=== PATIENT | female | born 1960 | race Caucasian/White ===

== ENCOUNTER 2018-06-05 14:33 | Observation (INO) | payer BC, SELFPAY ==
[2018-06-05 14:52] VITALS: BP 125/73; PULSE 108; RESP 18; TEMP 39.5; O2SAT 98; BMI 22.4
--- NOTE | 2018-06-05 16:57 | US_ITS ---
STUDY: RENAL ULTRASOUND - COMPLETE REASON FOR EXAM: Female, 57 years old. Hematuria microscopic TECHNIQUE: Ultrasound evaluation of the kidneys was performed with real-time and static rodgers-scale imaging. COMPARISON: None. FINDINGS: RIGHT KIDNEY: Normal location of the right kidney, which is normal in size. The right kidney measures 10.7 x 5 x 5 cm. There is a normal cortex of the right kidney. The renal cortex measures 1.6 cm. There is a 0.5 x 0.6 x 0.4 cm mid right renal cortical cyst. There are no right renal calculi. There is no right hydronephrosis. DISTAL RIGHT URETER: There is non-visualization of the distal right ureter. There is no demonstrated right ureterovesical junction calculus. There is no demonstrated right ureteral jet. LEFT KIDNEY: Normal location of the left kidney, which is normal in size. The left kidney measures 11 x 64.7 x 5.3 cm. There is a normal cortex of the left kidney. The renal cortex measures 1.8 cm. There is no left renal mass or cyst. There are no left renal calculi. There is no left hydronephrosis. DISTAL LEFT URETER: There is non-visualization of the distal left ureter. There is no demonstrated left ureterovesical junction calculus. There is no demonstrated left ureteral jet. BLADDER: The distended urinary bladder has a volume of 187 ml. There is a normal wall thickness of the distended urinary bladder. There is no demonstrated mass within the urinary bladder. There are no demonstrated bladder calculi. US/Kidney and Bladder IMPRESSION: There is no obstructive uropathy or obstructive renal calculi. Tiny right renal cyst. The ureteral jets are not visualized. Electronically Signed: Maritza Wilburn MD at 3:49 EDT , Service support ,
--- NOTE | 2018-06-05 17:00 | PCM.HP.BLA ---
History and Physical Date of Admission: 06/05/18 49 yo female presents for ER f/u. She reports ongoing fever up to 104 despite taking tylenol around the clock. In significant pain bilat flanks. Went to [facility] on 06/01/18, CT neg for stone/hydro. Urine cx grew E coli, resistant to cipro and sulfa. She took cephalexin x 2 but fever increased so she stopped it. Having a difficult time drinking and eating. Nausea no vomiting. ALLERGIES: Cipro Sulfa MEDICATIONS: Keflex Cyclobenzaprine Hcl Etodolac Hydrocodone-Acetaminophen 10 mg-325 mg tablet 1 tablet PO Daily PRN Promethazine Hcl 25 mg tablet 1 tablet PO Daily Tylenol PSH: Cysto Uretero Remove Stone - 2011 NON- PSH: D&&C - about 2007 PMH: Calculus of kidney - 2011, - 2011 Unspecified abdominal pain - 2011 Unspecified renal colic - 2011 Calculus of kidney with calculus of ureter Calculus of ureter Hematuria, unspecified Personal history of urinary calculi Urinary calculus, unspecified NON- PMH: Anxiety disorder due to known physiological condition Bronchitis, not specified as acute or chronic Secondary osteoarthritis, unspecified site FAMILY HISTORY: Breast Cancer - Runs in Family DVT - Father High Blood Pressure - Runs in Family Urinary Tract Infections - Mother SOCIAL HISTORY: Marital Status: Single Preferred Language: Georgian; Ethnicity: Not Or ; Race: White Current Smoking Status: Patient has never smoked. Does not use smokeless tobacco. Has never drank. Does not use drugs. Has not had a blood transfusion. REVIEW OF SYSTEMS: Constitutional: Patient reports fever and chills. Patient denies weight loss and weight gain. Eyes: Patient denies blurry vision, cataracts, and vision problems. Ears, Nose, Mouth, Throat: Patient denies hearing loss, sinus infections, nasal stuffiness, and sleep apnea. Cardiovascular: Patient denies chest pains, swollen ankles, irregular heartbeat, and pacemaker/defibrillator. Respiratory: Patient denies shortness of breath, wheezing, use oxygen, cpap at night., and copd. Gastrointestinal: Patient denies abdominal pain, nausea/vomiting, and change in bowels. Genitourinary: Patient reports frequent urination, blood in urine, get up at night to void, and history of stones. Patient denies bedwetting, weak stream, difficulty starting stream, frequent urinary tract infections, urinary retention, and leakage of urine. Musculoskeletal: Patient reports sore muscles and back pain. Patient denies gout and arthritis. Integumentary/Skin: Patient denies rash, persistent itching, and skin cancer history. Neurological: Patient denies numbness, dizziness, stroke/tia, and history of falling/unsteadiness.. Hematologic/Lymphatic: Patient denies swollen glands, abnormal bleeding, transfusion history, and blood clots/dvt/pulmonary embolism. VITAL SIGNS: 06/05/2018 01:25 PM Weight 128 lb / 58.06 kg Height 64 in / 162.56 cm BP 130/60 mmHg Temperature 102.3 F / 39.0 C BMI 22.0 kg/m? PHYSICAL EXAMINATION: Bladder: Normal to palpation, no tenderness, no mass, normal size. MULTI-SYSTEM PHYSICAL EXAMINATION: Constitutional: appears ill Respiratory: No labored breathing, no use of accessory muscles. Normal breath sounds. Neurologic / Psychiatric: Oriented to time, oriented to place, oriented to person. No depression, no anxiety, no agitation. Gastrointestinal: Abdominal tenderness bilat upper, and significant bilat CVA tenderness. No mass, no rigidity, non obese abdomen. Eyes: Normal conjunctivae. Normal eyelids. Musculoskeletal: Normal gait PAST DATA REVIEWED: Source Of History: Patient Records Review: Previous Hospital Records Urine Test Review: Urinalysis, Urine Culture and Sensitivity X-Ray Review: C.T. Abdomen/Pelvis: Reviewed Films. Reviewed Report. Discussed With Patient. PROCEDURES: Urinalysis - 14320 Dipstick Dipstick Cont'd Specimen: Voided Blood: about 50 Appearance: Clear pH: 5.0 Color: Yellow Protein: Neg Glucose: Normal Urobilinogen: 0.2 Bilirubin: Neg Nitrites: Neg Ketones: Neg Leukocyte Esterase: Neg ASSESSMENT: ICD-10 Details 1 : Acute pyelonephritis - N10 2 Personal history of urinary calculi - Z87.442 PLAN: Medications New Meds: Amoxicillin-Clavulanate Potass 875 mg-125 mg tablet 1 tablet PO Q 12 H #20 0 Refill(s) Document Letter(s): Created for Patient: Clinical Summary Notes: Pt appears quite ill, temp is 102.3, having difficulty eating and drinking, will direct admit to hospital per Dr Rene for IV antibiotics for pyelonephritis
[2018-06-05] MEDS: 0.9% Normal Saline 1,000 ML 100 ML IV (17:20)
[2018-06-05] MEDS: Acetaminophen 325 MG Tablet 650 MG PO (17:21)
[2018-06-05] MEDS: Morphine 2 MG/ML Syringe IV (17:21)
[2018-06-05 17:52] LABS: Bacteria 0 SEEN /hpf (None Seen); Mucous, Urine 0 SEEN /hpf (<or=2+); Red Blood Cells-Urine 0 SEEN /hpf (0-5); Squamous Epithelial Cells - UA 0 SEEN /hpf (5-10)
[2018-06-05 17:58] LABS: Absolute Lymphocyte Count 0.88 X10^3/ul (0.83-4.51); Absolute Neutrophil Count 9.3 X10^3/uL (2.0-7.7); Basophil# 0.01 X10^3/uL; Basophil% 0.1 % (0-1); Hematocrit 36.7 % (37-47); Hemoglobin 12.1 g/dl (12.0-15.0); Lymphocyte # 0.88 X10^3/ul (4.0); Lymphocyte % 7.4 % (19-41); Mean Corpuscular Hgb 29.3 pg (27.0-32.0); Mean Corpuscular Volume 88.9 fL (81-99); Mean Platelet Vol. 9.3 fl (6.2-12.0); Monocyte# 1.64 X10^3/uL; Monocyte% 13.8 % (0-10); Neutrophil # 9.32 X10^3/uL (2.7-7.7); Neutrophil % 78.5 % (47-70); Platelet Count 390 K/mm3 (150-450); RBC Distribution Width CV 13.8 % (11.6-14.6); RBC Distribution Width SD 45.1 fl (35.1-43.9); Red Blood Count 4.13 M/mm3 (4.2-5.4); White Blood Count 11.9 K/mm3 (4.4-11.0)
[2018-06-05 17:59] LABS: Differential Indicated SCAN CRITERIA MET; POSITIVE COUNT NO; POSITIVE DIFFERENTIAL YES; POSITIVE MORPHOLOGY NO
[2018-06-05 18:01] VITALS: TEMP 38.9
[2018-06-05] MEDS: oxyCODONE 5 MG Tablet PO (18:02)
[2018-06-05 18:05] LABS: Color, Urine Yellow (Yellow); Glucose, Dipstick Normal (Normal); Ketone-Dipstick Negative (Negative); Leukocyte Esterase-Dipstick Negative /ul (Negative); Nitrite-Dipstick Negative (Negative); Occult Blood-Urine 10 /ul (Negative); Protein-Dipstick 15 mg/dl (Negative); Urine Bilirubin Dipstick Negative (Negative); Urine Clarity Clear (Clear); Urine Urobilinogen 1 mg/dl (Normal)
--- NOTE | 2018-06-05 18:12 | NURSING ---
pt rating pain 3-4/10, after 2mg morphine. pain mostly to rt flank. oxyir given at this time. cherriro just arrived to unit but now has been changed to katharina, pt and her uncle aware.
[2018-06-05 18:13] LABS: White Blood Cells 0-5 SEEN /hpf (0-5)
[2018-06-05 18:16] LABS: Anion Gap 7 (5-15); BUN 14 mg/dL (7-18); BUN/Creat Ratio 12.4 RATIO (10-20); Calcium,Total 8.4 mg/dL (8.5-10.1); Chloride 101 mmol/L (98-107); Creatinine, Serum 1.13 mg/dL (0.55-1.02); EST Glomerular Filtration Rate 52 mL/min (>60); Est Glom Filt Rate - Afr Amer 63 mL/min (>60); Estimated Creatinine Clearance 46.29 ml/min; Glucose 93 mg/dL (74-106); Potassium 3.6 mmol/L (3.5-5.1); Sodium Level 134 mmol/L (136-145)
[2018-06-05 18:19] LABS: Lactic Acid 0.6 mmol/L (0.4-2.0)
[2018-06-05 18:24] LABS: Anisocytosis RARE; Ovalocyte RARE; Platelet Estimate ADEQUATE (ADEQ)
[2018-06-05 21:25] VITALS: BP 106/61; PULSE 82; RESP 16; TEMP 36.8; O2SAT 95
[2018-06-06] MEDS: oxyCODONE 5 MG Tablet PO ×2 (00:09→13:21)
[2018-06-06 02:21] VITALS: BP 107/68; PULSE 80; RESP 14; TEMP 36.9; O2SAT 98
[2018-06-06] MEDS: 0.9% Normal Saline 1,000 ML 100 ML IV ×3 (03:28→22:25)
[2018-06-06 07:37] VITALS: BP 127/82; PULSE 85; RESP 18; TEMP 37.6; O2SAT 98
[2018-06-06] MEDS: Polyethylene Glycol 3350 17 GM PACKET PO (07:39)
[2018-06-06 12:16] LABS: Pathologist Review Reviewed
--- NOTE | 2018-06-06 13:10 | CHAPLAIN ---
Type of Pastoral Visit _x__ Initial Visit ___ Follow-up Visit ___ On-call Visit ___ General Patient Visit ___ Spiritual Assessment ___ Family Conference ___ Bereavement ___ Rapid Response ___ Code Blue ___ Other (describe below) Pastoral Care Referral From _x__ Patient ___ Family ___ Nurse ___ Physician ___ Personal Care Service Provider ___ Site Supervising Technical Operator ___ Other (describe below) Sacrament/Intervention _x__ Active listening ___ Anointing ___ Hoahaoism ___ Bereavement ___ Communion ___ Anya exploration ___ ___ Life review _x__ Prayer ___ Reconciliation ___ Sacrament of Sick ___ Supportive presence ___ Wedding ___ Other (describe below) Pastoral Comments
[2018-06-06 13:56] VITALS: BP 139/92; PULSE 96; RESP 18; TEMP 37.2; O2SAT 95
--- NOTE | 2018-06-06 16:10 | PN_ITS ---
Subjective: NO NAUSE OR VOMITING FEVER CURVE GONE DOWN. rIGHT BACK STILL HURTS FROM PYELO. - Physical Exam General: Alert, Oriented x3, Cooperative HEENT: Atraumatic, PERRLA, EOMI, Normocephalic Neck: Supple, No JVD, Negative Carotid Bruits Lungs: Clear to auscultation, Normal air movement Cardiovascular: Regular rate, No murmurs Abdomen: Bowel Sounds Present, Soft, Non Tender Extremities: No edema, Capillary Refill Less than 3 Seconds Skin: No rashes, No breakdown Musculoskeletal: No Tenderness to Palpation of Joints or Extremities Neurological: Cranial nerves II-XII grossly intact Psych/Mental Status: Normal Affect, Appropriate Vital Signs Temp Pulse Resp BP Pulse Ox 98.9 F 96 18 139/92 H 95 06/06/18 13:56 06/06/18 13:56 06/06/18 13:56 06/06/18 13:56 06/06/18 13:56 Oxygen Delivery Method Room Air Weight: 59.137 kg Body Mass Index (BMI) 22.4 Intake and Output for Last 24 Hours 06/04/18 06/05/18 06/06/18 23:59 23:59 23:59 Intake Total 3819 / 3819 Output Total 1400 / 1400 1700 / 1700 Balance -1400 / -1400 2119 / 2119 Laboratory Tests Past 24 Hrs 06/05/18 06/05/18 06/05/18 17:35 17:35 17:35 WBC 11.9 H RBC 4.13 L Hgb 12.1 Hct 36.7 L MCV 88.9 MCH 29.3 MCHC 33.0 RDW 13.8 RDW Differential 45.1 H Plt Count 390 MPV 9.3 Immature Gran % (Auto) 0.200 Neut % (Auto) 78.5 H Lymph % (Auto) 7.4 L Wharton % (Auto) 13.8 H Eos % (Auto) 0.0 Baso % (Auto) 0.1 Absolute Neuts (auto) 9.3 H Absolute Lymphs (auto) 0.88 Total Counted Not Reportable Differential Comment SEE COMMENT Diff Path Review Reviewed Platelet Estimate ADEQUATE Anisocytosis RARE Ovalocytes RARE Sodium 134 L Potassium 3.6 Chloride 101 Carbon Dioxide 26.0 Anion Gap 7 BUN 14 Creatinine 1.13 H Estim Creat Clear Calc 46.29 Est GFR (MDRD) Af Amer 63 Est GFR (MDRD) Non-Af 52 L BUN/Creatinine Ratio 12.4 Glucose 93 Lactic Acid 0.6 Calcium 8.4 L Urine Color Urine Clarity Urine pH Ur Specific [place] Urine Protein Urine Glucose (UA) Urine Ketones Urine Occult Blood Urine Nitrite Urine Bilirubin Urine Urobilinogen Ur Leukocyte Esterase Urine RBC Urine WBC Ur Squamous Epith Cells Urine Bacteria Urine Mucus 06/05/18 17:35 WBC RBC Hgb Hct MCV MCH MCHC RDW RDW Differential Plt Count MPV Immature Gran % (Auto) Neut % (Auto) Lymph % (Auto) [place]arton % (Auto) Eos % (Auto) Baso % (Auto) Absolute Neuts (auto) Absolute Lymphs (auto) Total Counted Differential Comment Diff Path Review Platelet Estimate Anisocytosis Ovalocytes Sodium Potassium Chloride Carbon Dioxide Anion Gap BUN Creatinine Estim Creat Clear Calc Est GFR (MDRD) Af Amer Est GFR (MDRD) Non-Af BUN/Creatinine Ratio Glucose Lactic Acid Calcium Urine Color Yellow Urine Clarity Clear Urine pH 8.0 Ur Specific [place] 1.010 Urine Protein 15 H Urine Glucose (UA) Normal Urine Ketones Negative Urine Occult Blood 10 H Urine Nitrite Negative Urine Bilirubin Negative Urine Urobilinogen 1 H Ur Leukocyte Esterase Negative Urine RBC 0 SEEN Urine WBC 0-5 SEEN Ur Squamous Epith Cells 0 SEEN Urine Bacteria 0 SEEN Urine Mucus 0 SEEN Medical Necessity - Tobacco Use Smoking Status: Never smoker Assessment/Plan PROBABLY D/C TOMORROW. HOME ON [facility]
[2018-06-06 20:30] VITALS: BP 131/70; PULSE 93; RESP 16; TEMP 37.6; O2SAT 96
[2018-06-06] MEDS: Zolpidem Tartrate 5 MG Tablet PO (22:24)
[2018-06-07 02:07] VITALS: BP 127/83; PULSE 95; RESP 16; TEMP 36.9; O2SAT 98
--- NOTE | 2018-06-07 07:07 | DCINST_ITS ---
Discharge Diet: No Restrictions Discharge Activity: Return to Normal Activity, May Not Drive - for 2 days. Allergies/Adverse Reactions: Allergies Sulfa (Sulfonamide Antibiotics) Allergy (Verified 10/19/15 13:02) Rash cephalexin [From Keflex] Adverse Reaction (Verified 06/05/18 15:07) Fever and skin rash Medications to take at Discharge Baclofen 10 mg PO TID PRN 10/19/15 Naproxen [Naprosyn] 500 mg PO BID PRN 10/19/15 Acetaminophen [Tylenol Extra Strength] 500 mg PO Q8H PRN 06/05/18 Amoxicillin/Potassium Clav [Augmentin 500-125 Tablet] 1 each PO BID #14 tablet 06/07/18 The following prescriptions were given: Amoxicillin/Potassium Clav [Augmentin 500-125 Tablet] 1 each PO BID #14 tablet Primary Care Physician: Kal Garvey DO [Primary Care Provider] - Test Results: Test results from this visit will be discussed in further detail at your follow- up appointment, if applicable. Please Follow Up With: Selvin Rene MD When: in 2 weeks, please call to make an appointment.
--- NOTE | 2018-06-07 07:07 | PCM.DC.SUM ---
Discharge Date and Diagnosis Date of Admission: 06/05/18 Date of Discharge: 06/07/18 Hospital Course and Treatment Operations: None Procedures: None Summary of Care Provided: The patient is a 57 year old female who was admitted for right pyelonephritis and failed outpatient management was making fevers and chills, had a slightly elevated white blood count. On admission she was started on IV fluids and IV antibiotics cultures were done ultrasound was normal of her kidneys. She had a prior culture from outside hospital demonstrated positive growth fairly resistant E. coli but sensitive to ampicillin. She was put on Zosyn in the hospital be discharged with Augmentin and she will follow-up in my office in 2 weeks. - Physical Exam General: Alert, Oriented x3, Cooperative HEENT: Atraumatic, PERRLA, EOMI, Normocephalic Neck: Supple, No JVD, Negative Carotid Bruits Lungs: Clear to auscultation, Normal air movement Cardiovascular: Regular rate, No murmurs Abdomen: Bowel Sounds Present, Soft, Non Tender Extremities: No edema, Capillary Refill Less than 3 Seconds Skin: No rashes, No breakdown Musculoskeletal: No Tenderness to Palpation of Joints or Extremities Neurological: Cranial nerves II-XII grossly intact Psych/Mental Status: Normal Affect, Appropriate Vital Signs Temp Pulse Resp BP Pulse Ox 98.4 F 95 16 127/83 H 98 06/07/18 02:07 06/07/18 02:07 06/07/18 02:07 06/07/18 02:07 06/07/18 02:07 Oxygen Delivery Method Room Air Weight: 59.137 kg Body Mass Index (BMI) 22.4 Intake and Output for Last 24 Hours 06/05/18 06/06/18 06/07/18 23:59 23:59 23:59 Intake Total 4721 / 4721 2220 / 2220 Output Total 1400 / 1400 3700 / 3700 1600 / 1600 Balance -1400 / -1400 1021 / 1021 620 / 620 Laboratory Tests Past 24 Hrs 06/05/18 17:35 Diff Path Review Reviewed Discharge Diet: No Restrictions Discharge Activity: Return to Normal Activity, May Not Drive - for 2 days. Home Medications: Medications to take at Discharge Baclofen 10 mg PO TID PRN 10/19/15 Naproxen [Naprosyn] 500 mg PO BID PRN 10/19/15 Acetaminophen [Tylenol Extra Strength] 500 mg PO Q8H PRN 06/05/18 Amoxicillin/Potassium Clav [Augmentin 500-125 Tablet] 1 each PO BID #14 tablet 06/07/18 Following Prescrptions Were Given to Patient: Amoxicillin/Potassium Clav [Augmentin 500-125 Tablet] 1 each PO BID #14 tablet Primary Care Physician: Kal Garvey DO [Primary Care Provider] - Please Follow Up With: Selvin Rene MD When: in 2 weeks, please call to make an appointment. Medical Necessity - Tobacco Use Smoking Status: Never smoker Meaningful Use Info Meaningful Use Diagnoses (Choose all that apply): None applicable
[2018-06-07 07:52] VITALS: BP 136/91; PULSE 78; RESP 18; TEMP 36.9; O2SAT 95
[2018-06-07] MEDS: Acetaminophen 325 MG Tablet 650 MG PO (07:55)
[2018-06-07] MEDS: Polyethylene Glycol 3350 17 GM PACKET PO (07:56)
== END 2018-06-07 09:50 | disposition home or self-care (01) ==
PROVIDERS: Admitting Provider Urology; Family Provider Preventive Medicine Occupational Medicine; PCP Preventive Medicine Occupational Medicine; Referring Provider Urology; Visit Provider Urology
DX: N10 Acute pyelonephritis (principal); M19.93 Secondary osteoarthritis, unspecified site
CPT/HCPCS: 76770; 80048; 81001; 83605; 85025; 87040; 87086; 96361; 96365; 96366; 96375; 99218; J7030; J7040; G0378

== ENCOUNTER → 2018-06-21 | Outpatient (CLI) | payer BC, SELFPAY ==
[2018-06-05 14:52] VITALS: BMI 22.4
== END | disposition home or self-care (01) ==
PROVIDERS: Family Provider Preventive Medicine Occupational Medicine; PCP Preventive Medicine Occupational Medicine; Referring Provider Urology; Visit Provider Urology
DX: R31.9 Hematuria, unspecified (principal)
CPT/HCPCS: 87086